=== PATIENT | female | born 1965 | race African-American/Black ===

== ENCOUNTER 2019-08-02 16:00 | Outpatient (CLI) | payer BC, SELFPAY ==
--- NOTE | ~2019-08-02 | MM_ITS ---
EXAMINATION: MM screening [facility] BI w [place] HISTORY: Screening mammogram TECHNIQUE: Craniocaudal and mediolateral oblique 3-D tomosynthesis images were obtained and synthetic 2-D images were generated. CAD analysis was submitted and interpreted. COMPARISON: Comparison to multiple prior studies sequentially, with oldest reviewed study dated . . BREAST PARENCHYMAL COMPOSITION: There are scattered areas of fibroglandular density. FINDINGS: Stable benign-appearing low-density mass with circumscribed margins upper outer quadrant of the right breast. There is no evidence of suspicious mass, calcification, or architectural distortio n to suggest malignancy in either breast. There has been no suspicious interval change. IMPRESSION: 1. No mammographic evidence of malignancy. 2. Recommend routine screening mammography in one year. BI-RADS Category 2: Benign finding(s). Reviewed, dictated and finalized at location A.
== END 2019-08-02 16:01 | disposition home or self-care (01) ==
LOC: ANHIMG 16:03
PROVIDERS: PCP Family Medicine; Visit Provider Advanced Practice Midwife
DX: Z12.31 Encounter for screening mammogram for malignant neoplasm of breast (principal)
CPT/HCPCS: 77063; 77067

== ENCOUNTER 2019-08-04 00:51 | Emergency (ER) | payer BC, SELFPAY ==
--- NOTE | ~2019-08-04 | XR_ITS ---
EXAMINATION: XR chest 2V EXAM DATE: 08/04/2019 01:39 INDICATION: Left sided chest pain for 2 days. TECHNIQUE: Frontal and lateral projections of the chest obtained and reviewed. Comparison is made to prior examination from 01/20/2019. FINDINGS: The lungs are clear. There are no pleural effusions. The cardiomediastinal silhouette is within normal limits. There is no pneumothorax suspected. The bones and soft tissues are unremarkab le. There is no significant interval change. IMPRESSION: Normal chest x-ray exam. Reviewed, dictated and finalized at location A. IMPRESSION: Normal chest x-ray exam.
[2019-08-04 00:55] VITALS: BP 128/82; PULSE 117; RESP 16; TEMP 36.4; O2SAT 99
[2019-08-04 01:04] VITALS: BP 141/90; PULSE 104; RESP 19; TEMP 36.9; O2SAT 99
--- NOTE | 2019-08-04 01:07 | ECG_ITS ---
Measurements Intervals [place] Rate: 105 P: 52 NH: 129 QRS: 7 QRSD: 86 T: 61 QT: 339 QTc: 448 Interpretive Statements SINUS TACHYCARDIA POSSIBLE LEFT ATRIAL ENLARGEMENT VOLTAGE CRITERIA FOR LVH ABNORMAL ECG Electronically Signed On 08-04-2019 8:41:20 CDT by Chucho Pina D.O.
[2019-08-04 01:19] VITALS: PULSE 98; O2SAT 100
[2019-08-04 01:20] LABS: Basophils Percent Auto 0.3 % (0.2-1.2); Eosinophils Absolute Auto 0.1 K/mm3 (0-0.3); Eosinophils Percent Auto 0.9 % (0-4.4); Hematocrit 31.1 % (37.0-47.0); Hemoglobin 10.1 g/dL (12.0-15.0); Immature Granulocyte Absolute 0.03 K/mm3 (0.00-0.031); Immature Granulocyte Percent A 0.3 % (0-0.5); Lymphocytes Absolute Auto 1.37 K/mm3 (0.9-3.2); Lymphocytes Percent Auto 13.9 % (18.3-44.2); Mean Corpuscular HGB Conc 32.5 g/dl (32-36); Mean Corpuscular Hemoglobin 30.9 pg (26-34); Mean Corpuscular Volume 95.1 fl (80-100); Mean Platelet Volume 9.8 fl (7.4-10.4); Monocytes Absolute Auto 1.1 K/mm3 (0.1-0.6); Monocytes Percent Auto 10.8 % (2.6-8.5); Neutrophils Absolute Auto 7.3 K/mm3 (1.3-6.7); Neutrophils Percent Auto 73.8 % (45.5-73.1); Platelet Count Result 296 k/mm3 (150-375); Red Blood Count 3.27 M/mm3 (4.2-5.4); Red Cell Distribution Width 14.5 % (11.5-14.5); White Blood Count 9.9 K/mm3 (4.5-10.0)
--- NOTE | 2019-08-04 01:22 | ED.CHESTPAIN ---
HPI - Chest Pain General Chief Complaint: Chest Pain Stated Complaint: left arm pain, shoulder pain Time Seen by Provider: 08/04/19 01:22 Source: patient Mode of arrival: ambulatory Limitations: no limitations History of Present Illness HPI narrative: A 54 y/o female presents to the ED with c/o neck pain and left arm pain that began 5 days ago and has been constant since onset. Pt also c/o intermittent diffuse CP and ABD pain that began 2 days ago. Pt states that the CP will last for a few minutes at a time and then resolve. There are no aggravating factors. Pt describes the pain as sharp in character. Pt has taken Tylenol with no relief. Pt notes that she is currently going through menopause. She denies numbness/tingling, back pain, a fever, chills, productive cough, leg edema, and a FHx of heart disease. Onset (ago): day(s) (5) Quality: sharp Treatment prior to arrival: other (Tylenol) Related Data Home Medications Medication Instructions Recorded Confirmed adalimumab [Humira Pen] See Rx Instructions .ROUTE .COMPLEX 04/05/19 gabapentin 400 mg PO HS 04/05/19 multivitamin 1 tablet PO DAILY 04/07/19 atorvastatin 08/04/19 Allergies Allergy/AdvReac Type Severity Reaction Status Date / Time No Known Allergies Allergy Verified 08/04/19 01:06 Review of Systems Review of Systems: All systems reviewed & are unremarkable except as noted in HPI and below Constitutional: Constitutional: Denies chills and Denies fever(s) Cardiovascular: Cardiovascular: Reports chest pain (diffuse) and Denies leg edema Respiratory: Respiratory: Denies cough (productive) Gastrointestinal: Gastrointestinal: Reports abdominal pain (diffuse) Musculoskeletal: Musculoskeletal: Denies back pain Comments: Reports: neck pain, left arm pain Neurologic: Denies numbness PMFSH Past Medical History Medical History (Updated 08/04/19 @ 03:42 by Brigido Villalobos MD) Abdominal pain Anemia BP (high blood pressure) Chronic constipation Chronic insomnia HLD (hyperlipidemia) Mixed hyperlipidemia Morbid obesity Rheumatoid arthritis Surgical History Surgical History (Updated 08/04/19 @ 01:35 by Yamila Ziegler) Bariatric surgery status H/O prior ablation treatment Hx of hysterectomy Previous section S/P rotator cuff repair Social History Social History Years smoked: 25 Smoking status: Light tobacco smoker Tobacco type: cigarettes Second hand tobacco smoke exposure: Yes Alcohol intake: current Drinks per week: 2 Substance use: never Substance use type: does not use Gender identity (if verbalized by the patient): Female Comments No PCP on file. Exam Narrative: Exam Narrative: GENERAL: Well-appearing, well-nourished, and in no acute distress. HEAD: Normocephalic, atraumatic. ENT: Mucous membranes moist. NECK: Supple. No paraspinal cervical tenderness or trapezius tenderness. CHEST: Clear to auscultation. No respiratory distress. HEART: Regular rate and rhythm. Normal peripheral pulses that are equal. ABDOMEN: Soft, nontender, nondistended. EXTREMITIES: Normal range of motion with normal strength in the upper extremities. No reproducible tenderness over the deltoid/biceps/triceps/forearm.. No edema. SKIN: Warm, dry, no rash. NEURO: Alert and oriented x3. Course Course Emergency Course: Troponin undetectable despite persistent neck and arm pain for 5 days and chest pain for 2 days. Normal-appearing EKG with indeterminate axis. Patient declined additional pain medication beyond acetaminophen which was provided. Needs follow-up with PCP. Vital Signs Vital signs: Vital Signs Temperature 97.6 F 08/04/19 00:55 Pulse Rate 117 H 08/04/19 00:55 Respiratory Rate 16 08/04/19 00:55 Blood Pressure 128/82 08/04/19 00:55 Pulse Oximetry 99 08/04/19 00:55 Temperature 98.5 F 08/04/19 01:04 Pulse Rate 85 08/04/19 03:18 Respiratory R
[2019-08-04 01:28] LABS: Prothrombin Time 12.7 Seconds (11.1-14.7)
[2019-08-04 01:29] LABS: Partial Thromboplastin Time 41.8 SECONDS (22.3-36.8)
[2019-08-04] MEDS: ASPIRIN 81 MG CHEWABLE TABLET 324 MG PO (01:30)
[2019-08-04 01:32] LABS: Blood Urea Nitrogen 24 mg/dL (7-17); Calcium 9.4 mg/dL (8.4-10.2); Carbon Dioxide 26 mmol/L (22-30); Chloride 96 mmol/L (98-107); Estimated CRCL calculation 40 ml/min; Estimated Glomerular Filt Rate 52; Glucose 124 mg/dL (65-105); Lipase 176 U/L (23-300); Potassium 3.2 mmol/L (3.4-5.0); Sodium 133 mmol/L (137-145)
[2019-08-04 01:43] LABS: Troponin I < 0.012 ng/mL (0.000-0.034)
[2019-08-04 02:10] VITALS: BP 144/80; PULSE 85; RESP 16; O2SAT 100
[2019-08-04 02:27] LABS: Add Urine Microscopic? YES; Appearance Urine Clear (Clear); Bilirubin Urine Negative (Negative); Blood Urine Negative (Negative); Color Urine Yellow (Yellow); Glucose Urine UA Negative (Negative); Ketones Urine Trace mg/dL (Negative); Leukocyte Esterase Ur Negative LEU/UL (Negative); Nitrate Urine Negative (Negative); Protein Urine Negative (Negative); RBC Urine 0-2 /hpf (0-2); Urobilinogen Urine Negative mg/dL (<2.0); WBC Urine 0-3 /hpf
--- NOTE | 2019-08-04 03:16 | PC.NURSE ---
pt co arm pain. pt requesting pain medications. edp notified no further orders at this time.
[2019-08-04 03:18] VITALS: BP 139/87; PULSE 85; RESP 15; O2SAT 100
[2019-08-04] MEDS: ACETAMINOPHEN 325 MG TABLET 650 MG PO (03:41)
[2019-08-04 03:45] VITALS: BP 129/80; PULSE 66; RESP 14; O2SAT 97
== END 2019-08-04 03:45 | disposition home or self-care (01) ==
PROVIDERS: Emergency Provider Emergency Medicine; PCP Family Medicine
DX: M79.602 Pain in left arm (principal); I10 Essential (primary) hypertension; E78.5 Hyperlipidemia, unspecified; E78.2 Mixed hyperlipidemia; E66.01 Morbid (severe) obesity due to excess calories; Z68.25 Body mass index [BMI] 25.0-25.9, adult; M06.9 Rheumatoid arthritis, unspecified; F17.210 Nicotine dependence, cigarettes, uncomplicated; R00.0 Tachycardia, unspecified; R94.31 Abnormal electrocardiogram [ECG] [EKG]
CPT/HCPCS: 36415; 71046; 80048; 81001; 81025; 83690; 84484; 85025; 85610; 85730; 93005; 99284; A9270

== ENCOUNTER 2019-10-18 16:55 | Outpatient (CLI) | payer BC, SELFPAY ==
--- NOTE | ~2019-10-18 | CT_ITS ---
EXAMINATION: CT cervical spine wo con DATE: 10/18/2019 17:16 INDICATION: Cervical nerve root compression. TECHNIQUE: Computed tomography (CT) of the cervical spine was performed without intravenous contrast. Automated exposure control and iterative reconstruction technique were employed. The dose-length pro duct was 164.06 mGy-cm. COMPARISON: None FINDINGS: There is 6 degrees dextrocurvature of cervicothoracic spine. There is kyphosis of cervical spine. Vertebral body heights are normal. There is moderately decreased disc height at C2-C3 and C3-C 4, mildly decreased disc height at C4-C5 and C5-C6, severely decreased disc height at C6-C7, and mild ly decreased disc height at C7-T1. There are large anterior osteophytes from C3 to C7 with solid bony bridging at C4-C5. The following disc levels are specifically discussed: C2-C3: There is mild left uncovertebral joint osteoarthritis. There is severe bilateral facet joint o steoarthritis. There is mild left neural foraminal stenosis. There is no central canal stenosis. C3-C4: There is severe right and moderate left uncovertebral joint osteoarthritis. There is severe bi lateral facet joint osteoarthritis. There is mild bilateral neural foraminal stenosis. There is mild central canal stenosis. C4-C5: There is mild bilateral uncovertebral joint osteoarthritis. There is mild right and moderate l eft facet joint osteoarthritis. There is mild left neural foraminal stenosis. There is mild central c anal stenosis. C5-C6: There is no uncovertebral joint osteoarthritis. There is no facet joint osteoarthritis. There is no neural foraminal stenosis. There is no central canal stenosis. C6-C7: There is severe left uncovertebral joint osteoarthritis. There is severe bilateral facet joint osteoarthritis. There is mild left neural foraminal stenosis. There is mild central canal stenosis. C7-T1: There is no uncovertebral joint osteoarthritis. There is mild right and moderate left facet audie int osteoarthritis. There is mild left neural foraminal stenosis. There is no central canal stenosis. IMPRESSION: 1. Severe cervical spondylosis. Reviewed, dictated and finalized at location A.
== END 2019-10-18 16:56 | disposition home or self-care (01) ==
PROVIDERS: PCP Family Medicine; Visit Provider Family Medicine
DX: M47.892 Other spondylosis, cervical region (principal)
CPT/HCPCS: 72125

== ENCOUNTER 2019-12-07 16:36 | Outpatient (CLI) | payer BC, SELFPAY ==
--- NOTE | ~2019-12-07 | CT_ITS ---
EXAMINATION: CT abdomen pelvis w con INDICATION: Abnormal weight loss TECHNIQUE: Computed tomographic images of the abdomen and pelvis were obtained after the administrati on of 100 cc of Omnipaque 350 intravenous contrast. The dose-length product (DLP) was 273.23 mGy-cm. Automated exposure control and iterative reconstruction technique were employed. COMPARISON: None available FINDINGS: The lung bases are clear. The heart size is normal. The liver, spleen, pancreas, and adrena l glands are normal. Stones are present in the nondistended gallbladder. Surgical changes in the stom ach likely reflect gastric bypass. Cysts of the kidneys measure up to 3.3 cm on the right. There is c alcified atherosclerosis of the aorta and many of the other arteries. No pathologically enlarged abdo carey or pelvic lymph nodes are identified. There is no free intraperitoneal gas or evidence of bowel obstruction. The appendix is normal. Severe spondylosis is noted at L4-5. IMPRESSION: 1. No CT correlate for the patient's symptoms. 2. Cholelithiasis without evidence of cholecystitis. Reviewed, dictated and finalized at location A.
== END 2019-12-07 16:37 | disposition home or self-care (01) ==
PROVIDERS: PCP Family Medicine; Visit Provider Family Medicine
DX: K80.20 Calculus of gallbladder without cholecystitis without obstruction (principal)
CPT/HCPCS: 74177; Q9967

== ENCOUNTER 2020-02-21 08:05 | Emergency (ER) | payer BC, SELFPAY ==
--- NOTE | ~2020-02-21 | XR_ITS ---
EXAMINATION: XR shoulder LT min 2V DATE: 02/21/2020 09:12 INDICATION: Atraumatic right shoulder pain TECHNIQUE: AP internally and externally rotated, AP oblique externally rotated and axillary views of the left shoulder were obtained. COMPARISON: None FINDINGS: Normal alignment. No fracture.Mild glenohumeral and acromioclavicular osteoarthritis. No erosions to suggest inflammatory arthritis. Visualized portions of the upper lungs are clear. Soft tissues are u nremarkable. IMPRESSION: Mild glenohumeral and acromioclavicular osteoarthritis. Reviewed, dictated and finalized at location A.
--- NOTE | ~2020-02-21 | XR_ITS ---
EXAMINATION: XR chest 2V DATE: 02/21/2020 09:12 INDICATION: General left shoulder pain TECHNIQUE: PA and lateral views of the chest were obtained. COMPARISON: Chest radiograph dated 08/04/2019 FINDINGS: The lungs remain clear with no focal airspace opacities, pulmonary edema, pleural effusion or pneumot horax. The cardiomediastinal silhouette is normal. Mild thoracic dextrocurvature with mild to moderat e spondylosis. Postoperative changes at the right shoulder including likely osteotomy at the distal c lavicle and metallic buttons clinically for bicipital tenodesis at the proximal right humeral metadia physis. Several surgical clips in the left upper quadrant of the abdomen. IMPRESSION: 1. No acute cardiopulmonary disease. Reviewed, dictated and finalized at location A.
--- NOTE | 2020-02-21 08:06 | ECG_ITS ---
Measurements Intervals [place] Rate: 106 P: 59 SC: 122 QRS: 13 QRSD: 83 T: 46 QT: 346 QTc: 461 Interpretive Statements SINUS TACHYCARDIA POSSIBLE LEFT ATRIAL ENLARGEMENT VOLTAGE CRITERIA FOR LVH NONSPECIFIC T-WAVE ABNORMALITY- HIGH LATERAL LEADS BASELINE ARTIFACT- I, III, AVL, AVF, V4-V6 ABNORMAL ECG Electronically Signed On 02-21-2020 8:20:13 CDT by Chucho Pina D.O.
[2020-02-21 08:08] VITALS: BP 157/73; PULSE 108; RESP 20; TEMP 37; O2SAT 98
--- NOTE | 2020-02-21 08:10 | ED.NECK ---
HPI - Neck Pain/Injury General Chief Complaint: Neck Pain/Injury Stated Complaint: shoulder and neck pain Time Seen by Provider: 02/21/20 08:10 Source: patient Mode of arrival: ambulatory Limitations: no limitations History of Present Illness HPI Narrative: Patient is a 54 y.o. female with RA, chronic pain, history of severe cervical spondylosis who presents for evaluation of shoulder pain. Patient states shoulder pain began 72 hours ago on Thursday, no recent trauma or heavy lifting. Pain is dull, aching in nature, at times it is wosened with movement. Patient denies any chest pain, cough or shortness of breath. No fever or chills. No swelling of the arm, no history of trouble with this arm. Patient denies any numbness or weakness in her left upper extremity. No rash. Patient reports chronic back pain and chronic neck pain. She follows with Dr. Santoyo for this. In the past, patient has been referred to pain management. Of note, patient has a very flat affect, very difficult to obtain history from the patient, patient is not very forthcoming with information. Related Data Home Medications Medication Instructions Recorded Confirmed adalimumab [Humira Pen] See Rx Instructions .ROUTE .COMPLEX 04/05/19 12/27/19 gabapentin 400 mg PO HS 04/05/19 12/27/19 multivitamin 1 tablet PO DAILY 04/07/19 12/27/19 atorvastatin 08/04/19 12/27/19 Allergies Allergy/AdvReac Type Severity Reaction Status Date / Time hydromorphone Allergy Intermediate pruritis Verified 02/21/20 08:18 Review of Systems Review of Systems: Narrative: CONSTITUTIONAL: Denies fever, chills ENT: Denies rhinorrhea, congestion, sore throat, or otalgia. CARDIOVASCULAR: Denies chest pain, palpitations, or edema. RESPIRATORY: Denies cough or dyspnea. GASTROINTESTINAL: Denies abdominal pain, nausea, vomiting, or diarrhea. GENITOURINARY: Denies dysuria or hematuria. SKIN: Denies rash or itching. MUSCULOSKELETAL: Reports chronic back pain, reports left shoulder pain NEUROLOGIC: Denies headache, numbness, or weakness. [facility] Past Medical History Medical History Abdominal pain Anemia Benign essential HTN BP (high blood pressure) Chronic constipation Chronic insomnia HLD (hyperlipidemia) Mixed hyperlipidemia Morbid obesity Rheumatoid arthritis Tobacco dependence due to cigarettes Surgical History Surgical History Bariatric surgery status H/O prior ablation treatment Hx of hysterectomy Previous section S/P rotator cuff repair Social History Social History Social History: Single Years smoked: 25 Smoking status: Light tobacco smoker Tobacco type: cigarettes Second hand tobacco smoke exposure: Yes Alcohol intake: current Drinks per week: 2 Substance use: never Substance use type: does not use Gender identity (if verbalized by the patient): Female Exam Narrative: Exam Narrative: GENERAL: Awake, alert, conversant HEAD: Normocephalic, atraumatic. EYES: PERRLA and EOMI. ENT: Nares clear, no rhinorrhea or epistaxis. Mucous membranes moist. NECK: Supple. CHEST: No respiratory distress, breathing even and non labored HEART: Regular rate, sinus rhythm ABDOMEN:Non distended, non tender EXTREMITIES: Left shoulder: Normal range of motion. No edema. Mild tenderness over the trapezius, no tenderness over the deltoid. No tenderness over the clavicle. No scapular tenderness. Full abduction and adduction without limitation or pain. No axillary lymphadenopathy. Full flexion and extension at the left elbow. No edema or erythema. Intact sensation median, ulnar, radial nerve distribution. Tarper strength 5/5. Radial pulse 2+. SKIN: Warm, dry, no rash. NEURO:No focal deficits. Alert and oriented x3 Course Vital Signs Vital signs: Vital Signs Temperature 37.0 C 02/20
[2020-02-21 09:04] LABS: Basophils Percent Auto 0.3 % (0.2-1.2); Eosinophils Absolute Auto 0.1 K/mm3 (0-0.3); Hemoglobin 9.3 g/dL (12.0-15.0); Immature Granulocyte Absolute 0.03 K/mm3 (0.00-0.031); Immature Granulocyte Percent A 0.3 % (0-0.5); Lymphocytes Absolute Auto 1.15 K/mm3 (0.9-3.2); Lymphocytes Percent Auto 12.7 % (18.3-44.2); Mean Corpuscular Hemoglobin 27.3 pg (26-34); Mean Platelet Volume 10.1 fl (7.4-10.4); Monocytes Absolute Auto 0.8 K/mm3 (0.1-0.6); Monocytes Percent Auto 8.6 % (2.6-8.5); Neutrophils Percent Auto 77.1 % (45.5-73.1); Platelet Count Result 377 k/mm3 (150-375); Red Blood Count 3.41 M/mm3 (4.2-5.4); Red Cell Distribution Width 19.8 % (11.5-14.5); White Blood Count 9.1 K/mm3 (4.5-10.0)
[2020-02-21] MEDS: ONDANSETRON INJ 4 MG/2 ML VIAL IV PUSH (09:15)
[2020-02-21] MEDS: traMADol HCL (*CRX) 50 MG TABLET 25 MG PO (09:15)
[2020-02-21 09:16] LABS: Alanine Aminotransferase 12 U/L (4-35); Albumin Level 4.3 g/dL (3.5-5.1); Alkaline Phosphatase 155 U/L (38-126); Anion Gap 13 mmol/L (8-16); Aspartate Amino Transferase 25 U/L (14-36); Bilirubin,Total 0.5 mg/dL (0.2-1.3); Blood Urea Nitrogen 18 mg/dL (7-17); Calcium 9.7 mg/dL (8.4-10.2); Carbon Dioxide 25 mmol/L (22-30); Chloride 101 mmol/L (98-107); Estimated CRCL calculation 51 ml/min; Estimated Glomerular Filt Rate > 60; Glucose 139 mg/dL (65-105); Lipase 196 U/L (23-300); Sodium 139 mmol/L (137-145)
[2020-02-21 09:30] VITALS: BP 146/78; PULSE 92; RESP 16; O2SAT 98
[2020-02-21 10:45] VITALS: BP 149/87; PULSE 100; RESP 16; O2SAT 100
== END 2020-02-21 10:45 | disposition home or self-care (01) ==
PROVIDERS: Emergency Provider Emergency Medicine; PCP Family Medicine
DX: S16.1XXA Strain of muscle, fascia and tendon at neck level, initial encounter (principal); M25.512 Pain in left shoulder; M19.90 Unspecified osteoarthritis, unspecified site; R00.0 Tachycardia, unspecified; F17.210 Nicotine dependence, cigarettes, uncomplicated; I10 Essential (primary) hypertension; E78.5 Hyperlipidemia, unspecified; Z98.84 Bariatric surgery status; X58.XXXA Exposure to other specified factors, initial encounter
CPT/HCPCS: 36415; 71046; 73030; 80053; 83690; 85025; 93005; 96374; 99284; A9270; J2405

== ENCOUNTER 2020-03-27 01:08 | Outpatient (CLI) | payer BC, SELFPAY ==
[2020-03-27 19:47] LABS: SARS-CoV-2 RNA PCR Negative
== END 2020-03-27 01:09 | disposition home or self-care (01) ==
LOC: ANHCOVIDDT 01:08
PROVIDERS: PCP Family Medicine; Visit Provider Internal Medicine Gastroenterology
DX: Z01.818 Encounter for other preprocedural examination (principal); Z20.828 Contact with and (suspected) exposure to other viral communicable diseases
CPT/HCPCS: 87635; C9803; U0003

== ENCOUNTER 2020-03-30 00:37 | Day surgery (SDC) | payer BC, SELFPAY ==
[2020-03-27 08:57] VITALS: BMI 21.2
--- NOTE | 2020-03-30 08:08 | WPDANESEPPF ---
Anes - Initial Pre Proc Eval Procedure: Operation Date: 03/30/20 09:00 Proposed Procedures p Esophagogastroduodenoscopy - Ash Armas MD Date/Time: 03/30/20 08:08 Surgeon: Ash Armas MD Pre Op Diagnosis: Anemia Patient Data Age: 54 Gender: F Height: 1.65 m Weight: 58 kg Allergies Allergy/AdvReac Type Severity Reaction Status Date / Time hydrocodone [From Vicodin] Allergy Intermediate Itching Verified 03/27/20 08:51 hydromorphone Allergy Intermediate pruritis Verified 03/27/20 08:50 tramadol Allergy Intermediate Itching Verified 03/27/20 08:51 Home Medications Medication Instructions Recorded Confirmed Type adalimumab [Humira Pen] See Rx Instructions .ROUTE .COMPLEX 04/05/19 03/27/20 History multivitamin 1 tablet PO DAILY 04/07/19 03/27/20 History atorvastatin 10 mg PO DAILY 08/04/19 03/27/20 History temazepam 15 mg capsule 15 mg PO .qhs PRN #60 cap 12/27/19 03/27/20 Rx gabapentin 400 mg capsule 800 mg PO TID cap 02/22/20 03/27/20 History carisoprodol 350 mg tablet 350 mg PO TID PRN #90 tablet 02/28/20 03/27/20 Rx irbesartan 150 mg tablet 150 mg PO DAILY #30 tablet 03/20/20 03/27/20 Rx leflunomide 20 mg PO DAILY 03/27/20 03/27/20 History omeprazole 20 mg capsule,delayed 20 mg PO DAILY #90 cap 03/29/20 Rx release Patient hx anesthesia problems: none Family hx anesthesia problems: none PMFSH Past Medical History Medical History (Updated 03/30/20 @ 08:09 by Juanito Jordan MD) Abdominal pain Anemia Benign essential HTN BP (high blood pressure) Chronic constipation Chronic insomnia HLD (hyperlipidemia) Mixed hyperlipidemia Rheumatoid arthritis Tobacco dependence due to cigarettes Surgical History Surgical History Bariatric surgery status H/O prior ablation treatment Hx of hysterectomy Previous section S/P rotator cuff repair Social History Social History Social History: Single Years smoked: 20 Smoking status: Current every day smoker Tobacco type: cigarettes Second hand tobacco smoke exposure: Yes Alcohol intake: current Drinks per week: 2 Substance use: never Substance use type: does not use Living arrangements: with family Gender identity (if verbalized by the patient): Female Spiritual care concerns: No Anes - Eval Final PreProcedure Day of Procedure 03/30/20 08:08 Patient weight: normal Heart: regular rate and rhythm Lungs: clear to auscultation and normal air movement Airway: Mallampati scale class II Neurological: alert and oriented Last oral intake: >/= 8 hours ASA classification: III Emergent: no Anesthetic plan: proceed Anesthesia type and monitoring: general GIVS Informed Consent: The patient's anesthetic plan and its attendant risks and benefits were discussed with the patient/family/POA. Questions were solicited and answers provided to the satisfaction of the patient/family/POA.
[2020-03-30] MEDS: LACTATED RINGERS 1,000 ML 150 ML IV CONT (08:32)
--- NOTE | 2020-03-30 08:34 | WPDHPUPDATE1 ---
History and Physical Update Update Date/Time: 03/30/20 08:34 History and Physical has been reviewed, including an updated exam of the patient. There are NO changes in the patient's condition. Risks, benefits, and alternatives have been discussed and questions answered. Patient agrees to proceed with procedure.
[2020-03-30 08:36] VITALS: BP 129/49; PULSE 88; RESP 16; TEMP 36.3; O2SAT 100; BMI 22.4
[2020-03-30 08:59] VITALS: BP 133/79; PULSE 84; RESP 24; O2SAT 94
[2020-03-30 09:09] VITALS: BP 131/81; PULSE 78; RESP 22; O2SAT 100
[2020-03-30 09:19] VITALS: BP 137/75; PULSE 86; RESP 18; O2SAT 100
== END 2020-03-30 09:29 | disposition home or self-care (01) ==
PROVIDERS: PCP Family Medicine; Visit Provider Internal Medicine Gastroenterology
PROC: 0DJ08ZZ Inspection of Upper Intestinal Tract, Via Natural or Artificial Opening Endoscopic (ICD-10-PCS; CPT 43235; principal; 2020-03-30 09:00)
DX: D50.9 Iron deficiency anemia, unspecified (principal); K25.9 Gastric ulcer, unspecified as acute or chronic, without hemorrhage or perforation; K29.70 Gastritis, unspecified, without bleeding; Z98.84 Bariatric surgery status; I10 Essential (primary) hypertension; E78.2 Mixed hyperlipidemia; M06.9 Rheumatoid arthritis, unspecified; K59.09 Other constipation; F51.04 Psychophysiologic insomnia; F17.210 Nicotine dependence, cigarettes, uncomplicated
CPT/HCPCS: 43239; 87081; 88305; J2704; J7120

== ENCOUNTER → 2020-10-06 01:35 | Outpatient (CLI) | payer BC, SELFPAY ==
[2020-10-06 19:55] LABS: SARS-CoV-2 RNA PCR Negative
== END ==
PROVIDERS: PCP Family Medicine; Visit Provider Internal Medicine Gastroenterology
DX: Z01.812 Encounter for preprocedural laboratory examination (principal); Z20.822 Contact with and (suspected) exposure to COVID-19
CPT/HCPCS: C9803; U0003; U0005

== ENCOUNTER 2020-10-10 02:28 | Day surgery (SDC) | payer BC, SELFPAY ==
[2020-10-03 09:59] VITALS: BMI 22.7
[2020-10-10 07:11] VITALS: BP 150/89; PULSE 97; RESP 16; TEMP 36.3; O2SAT 100; BMI 22.4
[2020-10-10] MEDS: LACTATED RINGERS 1,000 ML 150 ML IV CONT (07:26)
--- NOTE | 2020-10-10 07:38 | WPDANESEPPF ---
Anes - Initial Pre Proc Eval Procedure: Operation Date: 10/10/20 08:00 Proposed Procedures p Esophagogastroduodenoscopy - Ash Armas MD Date/Time: 10/10/20 07:38 Surgeon: Ash Armas MD Pre Op Diagnosis: gastric ulcer Patient Data Age: 55 Gender: F Height: 5 ft 5 in Weight: 61 kg Last Vital Signs Temp 97.4 F L 10/10/20 07:11 Pulse 97 10/10/20 07:11 Resp 16 10/10/20 07:11 BP 150/89 H 10/10/20 07:11 Pulse Ox 100 10/10/20 07:11 Allergies Allergy/AdvReac Type Severity Reaction Status Date / Time hydrocodone [From Vicodin] Allergy Intermediate Itching Verified 10/10/20 07:09 hydromorphone Allergy Intermediate pruritis Verified 10/10/20 07:09 tramadol Allergy Intermediate Itching Verified 10/10/20 07:09 Home Medications Medication Instructions Recorded Confirmed Type multivitamin 1 tablet PO DAILY 04/07/19 10/10/20 History leflunomide 20 mg PO DAILY 03/27/20 10/10/20 History irbesartan 150 mg tablet 150 mg PO DAILY #90 tablet 06/19/20 10/10/20 Rx atorvastatin 10 mg tablet 10 mg PO DAILY #90 tablet 06/29/20 10/10/20 Rx amitriptyline 25 mg tablet 25 mg PO QHS #30 tablet 09/13/20 10/10/20 Rx abatacept [Orencia ClickJect] 125 mg SUBCUT WEEKLY 10/03/20 10/10/20 History omeprazole 20 mg capsule,delayed 20 mg PO BID #180 cap 10/03/20 10/10/20 Rx release Patient hx anesthesia problems: none Family hx anesthesia problems: none PMFSH Past Medical History Medical History Abdominal pain Anemia Benign essential HTN BP (high blood pressure) Chronic constipation Chronic insomnia HLD (hyperlipidemia) Mixed hyperlipidemia Rheumatoid arthritis Tobacco dependence due to cigarettes Surgical History Surgical History Bariatric surgery status H/O prior ablation treatment Hx of hysterectomy Previous section S/P rotator cuff repair Social History Social History (Updated 05/22/20 @ 07:38 by Radha Hargrove) Social History: Single Years smoked: 26 Smoking status: Current every day smoker Tobacco type: cigarettes Second hand tobacco smoke exposure: Yes Alcohol intake: current Drinks per week: 1 Substance use: never Substance use type: does not use Living arrangements: alone Gender identity (if verbalized by the patient): Female Spiritual care concerns: No Anes - Eval Final PreProcedure Day of Procedure 10/10/20 07:38 Patient weight: overweight Heart: regular rate and rhythm Lungs: clear to auscultation Airway: Mallampati scale class II Neurological: alert and oriented Last oral intake: >/= 8 hours ASA classification: III Emergent: no Anesthetic plan: proceed Anesthesia type and monitoring: general GIVS and standard monitoring Informed Consent: The patient's anesthetic plan and its attendant risks and benefits were discussed with the patient/family/POA. Questions were solicited and answers provided to the satisfaction of the patient/family/POA.
--- NOTE | 2020-10-10 08:00 | PM.HPGS ---
History of Present Illness History of Present Illness Consent: Risks, benefits, and alternatives have been discussed and questions answered. Patient agrees to proceed with procedure. Chief complaint: gastric ulcer Narrative: Soheila Gasca is a 55 year old female with ulcer at site of gastrojejunal anastomosis 6 months ago, using ppi bid. Here to reassess Review of Systems Constitutional: Constitutional: Denies headache(s) and Denies weakness Eyes: Eyes: Denies blurry vision ENT: Reports Normal hearing present, Denies headache(s) and Denies neck pain Cardiovascular: Cardiovascular: Denies chest pain and Denies dyspnea Respiratory: Respiratory: Denies dyspnea Gastrointestinal: Gastrointestinal: Reports no additional gastrointestinal complaints Genitourinary: Genitourinary: Denies dysuria Musculoskeletal: Musculoskeletal: Denies neck pain Integumentary/Breasts: Skin/Breast: Denies dry skin Neurologic: Reports Normal hearing present, Denies headache(s) and Denies weakness Psychiatric: Psychiatric: Denies anxiety Endocrine: Endocrine: Denies change in body appearance Hematologic/Lymphatic: Hematologic/Lymphatic: Denies easy bleeding Allergic/Immunologic: Allergic/Immunologic: Denies urticaria PMFSH Past Medical History Medical History (Updated 10/10/20 @ 08:01 by Ash Armas MD) Abdominal pain Anemia Benign essential HTN BP (high blood pressure) Chronic constipation Chronic insomnia HLD (hyperlipidemia) Mixed hyperlipidemia Rheumatoid arthritis Tobacco dependence due to cigarettes Ulcer at site of surgical anastomosis following bypass of stomach Surgical History Surgical History Bariatric surgery status H/O prior ablation treatment Hx of hysterectomy Previous section S/P rotator cuff repair Social History Social History (Updated 05/22/20 @ 07:38 by Radha Hargrove) Social History: Single Years smoked: 26 Smoking status: Current every day smoker Tobacco type: cigarettes Second hand tobacco smoke exposure: Yes Alcohol intake: current Drinks per week: 1 Substance use: never Substance use type: does not use Living arrangements: alone Gender identity (if verbalized by the patient): Female Spiritual care concerns: No Meds Home Medications and Allergies Home Medications Medication Instructions Recorded Confirmed Type multivitamin 1 tablet PO DAILY 04/07/19 10/10/20 History leflunomide 20 mg PO DAILY 03/27/20 10/10/20 History irbesartan 150 mg tablet 150 mg PO DAILY #90 tablet 06/19/20 10/10/20 Rx atorvastatin 10 mg tablet 10 mg PO DAILY #90 tablet 06/29/20 10/10/20 Rx amitriptyline 25 mg tablet 25 mg PO QHS #30 tablet 09/13/20 10/10/20 Rx abatacept [Orencia ClickJect] 125 mg SUBCUT WEEKLY 10/03/20 10/10/20 History omeprazole 20 mg capsule,delayed 20 mg PO BID #180 cap 10/03/20 10/10/20 Rx release Allergies Allergy/AdvReac Type Severity Reaction Status Date / Time hydrocodone [From Vicodin] Allergy Intermediate Itching Verified 10/10/20 07:09 hydromorphone Allergy Intermediate pruritis Verified 10/10/20 07:09 tramadol Allergy Intermediate Itching Verified 10/10/20 07:09 Vital Signs Vital Signs - 24 hr 10/10/20 07:11 Temperature 97.4 F L Pulse Rate 97 Respiratory Rate 16 Blood Pressure 150/89 H Pulse Oximetry 100 Exam Const: General: comfortable and no acute distress HENMT: General nose exam: Normal nares present Eyes: General: appearance normal, both eyes and all related structures Neck: Neck: no JVD Resp: Auscultation: clear to auscultation bilaterally Cardio: Rate: regular rate Rhythm: regular rhythm GI: Inspection: non-distended GI Palp: Yes Soft to palpation Skin: General skin exam: normal color Neuro: General: gait normal Speech: normal speech Extrem: General: normal to inspection Psych: Mental Status: mental status grossly normal
[2020-10-10 08:20] VITALS: BP 151/80; PULSE 95; RESP 21; O2SAT 95
[2020-10-10 08:30] VITALS: BP 151/80; PULSE 88; RESP 16; O2SAT 99
[2020-10-10 08:37] VITALS: BP 141/72; PULSE 89; RESP 16; O2SAT 99
== END 2020-10-10 08:51 | disposition home or self-care (01) ==
PROVIDERS: PCP Family Medicine; Visit Provider Internal Medicine Gastroenterology
PROC: 0DJ08ZZ Inspection of Upper Intestinal Tract, Via Natural or Artificial Opening Endoscopic (ICD-10-PCS; CPT 43235; principal; 2020-10-10 08:00)
DX: K28.9 Gastrojejunal ulcer, unspecified as acute or chronic, without hemorrhage or perforation (principal); K59.09 Other constipation; G47.00 Insomnia, unspecified; I10 Essential (primary) hypertension; E78.5 Hyperlipidemia, unspecified; M06.9 Rheumatoid arthritis, unspecified; Z98.84 Bariatric surgery status; K29.00 Acute gastritis without bleeding; K29.50 Unspecified chronic gastritis without bleeding; Z90.710 Acquired absence of both cervix and uterus; Z72.0 Tobacco use
CPT/HCPCS: 43239; 88305; J2001; J2704; J7120

== ENCOUNTER 2020-11-14 16:13 | Outpatient (CLI) | payer BC, SELFPAY ==
--- NOTE | ~2020-11-14 | MM_ITS ---
EXAMINATION: MM screening [facility] w [facility] HISTORY: Screening TECHNIQUE: Craniocaudal and mediolateral oblique 3-D tomosynthesis images were obtained and synthetic 2-D images were generated. CAD analysis was submitted and interpreted. COMPARISON: Comparison to multiple prior studies sequentially, with oldest reviewed study dated 11/2014. BREAST PARENCHYMAL COMPOSITION: There are scattered areas of fibroglandular density. FINDINGS: Stable benign-appearing mass in the upper outer quadrant of the right breast. There is no e vidence of suspicious mass, calcification, or architectural distortion to suggest malignancy in eithe r breast. There has been no suspicious interval change. IMPRESSION: 1. No mammographic evidence of malignancy. 2. Recommend routine screening mammography in one year. BI-RADS Category 2: Benign finding(s). Reviewed, dictated and finalized at location A.
== END 2020-11-14 16:14 | disposition home or self-care (01) ==
LOC: ANHIMG 16:14
PROVIDERS: PCP Family Medicine; Visit Provider Nurse Practitioner Obstetrics & Gynecology
DX: Z12.31 Encounter for screening mammogram for malignant neoplasm of breast (principal)
CPT/HCPCS: 77063; 77067

== ENCOUNTER 2020-12-18 18:27 | Emergency (ER) | payer BC, SELFPAY ==
--- NOTE | ~2020-12-18 | CT_ITS ---
EXAMINATION: CT brain wo con DATE: 12/18/2020 19:21 INDICATION: Dysphasia. Falls. Dropping things. TECHNIQUE: Computed tomography (CT) of the head was performed without intravenous contrast. The mA wa s adjusted according to patient size. Iterative reconstruction technique was employed. The dose-lengt h product was 605.33 mGy-cm. COMPARISON: None FINDINGS: There is no intracranial hemorrhage, acute infarction, or abnormal intracranial mass lesion . The ventricles are normal in size. The orbits are normal. The paranasal sinuses are clear. The mast oid air cells are normal. IMPRESSION: 1. Normal brain. Reviewed, dictated and finalized at location A. IMPRESSION: 1. Normal brain.
[2020-12-18 18:46] VITALS: BP 131/74; PULSE 99; RESP 18; TEMP 37; O2SAT 100
[2020-12-18 19:57] LABS: Basophils Percent Auto 0.4 % (0.2-1.2); Eosinophils Absolute Auto 0.1 K/mm3 (0-0.3); Eosinophils Percent Auto 1.3 % (0-4.4); Hematocrit 29.1 % (37.0-47.0); Hemoglobin 9.4 g/dL (12.0-15.0); Immature Granulocyte Absolute 0.03 K/mm3 (0.00-0.031); Immature Granulocyte Percent A 0.4 % (0-0.5); Lymphocytes Absolute Auto 1.55 K/mm3 (0.9-3.2); Lymphocytes Percent Auto 21.6 % (18.3-44.2); Mean Corpuscular HGB Conc 32.3 g/dl (32-36); Mean Corpuscular Hemoglobin 30.6 pg (26-34); Mean Corpuscular Volume 94.8 fl (80-100); Mean Platelet Volume 9.5 fl (7.4-10.4); Monocytes Absolute Auto 0.5 K/mm3 (0.1-0.6); Monocytes Percent Auto 6.8 % (2.6-8.5); Neutrophils Percent Auto 69.5 % (45.5-73.1); Platelet Count Result 174 k/mm3 (150-375); Red Blood Count 3.07 M/mm3 (4.2-5.4); Red Cell Distribution Width 16.6 % (11.5-14.5); White Blood Count 7.2 K/mm3 (4.5-10.0)
[2020-12-18 20:09] LABS: Anion Gap 7 mmol/L (8-16); Blood Urea Nitrogen 18 mg/dL (7-17); Calcium 9.1 mg/dL (8.4-10.2); Carbon Dioxide 23 mmol/L (22-30); Chloride 106 mmol/L (98-107); Estimated CRCL calculation 51 ml/min; Estimated Glomerular Filt Rate > 60; Glucose 123 mg/dL (65-110); Potassium 3.2 mmol/L (3.4-5.0); Sodium 136 mmol/L (137-145)
--- NOTE | 2020-12-18 21:00 | ED.NEUROSD ---
HPI - Neuro Symptoms/Deficit General Chief Complaint: Neuro Symptoms/Deficit Stated Complaint: Falling and dropping things for 2 weeks Time Seen by Provider: 12/18/20 19:26 Source: patient Mode of arrival: ambulatory Limitations: no limitations History of Present Illness HPI Narrative: 55-year-old female Patient had cervical spine fusion done at [place] in May of this year She has continued to have pain, although not quite as much, postoperatively For about the last 2 or 3 weeks she has noticed that she has stumbled and fallen a couple of times, and that also she has had a few episodes of dropping things unexpectedly with either hand She spoke to her PCP about this at some point and they recommended that she be evaluated in the ED for this, primarily due to concern for possible CVA or TIA according to the patient She does not perceive that she has focal or unilateral weakness or numbness, no headaches Related Data Home Medications Medication Instructions Recorded Confirmed multivitamin 1 tablet PO DAILY 04/07/19 10/10/20 leflunomide 20 mg PO DAILY 03/27/20 10/10/20 abatacept [Orencia ClickJect] 125 mg SUBCUT WEEKLY 10/03/20 10/10/20 Allergies Allergy/AdvReac Type Severity Reaction Status Date / Time hydrocodone [From Vicodin] Allergy Intermediate Itching Verified 12/18/20 19:38 hydromorphone Allergy Intermediate pruritis Verified 12/18/20 19:38 tramadol Allergy Intermediate Itching Verified 12/18/20 19:38 Review of Systems Review of Systems: All systems reviewed & are unremarkable except as noted in HPI and below Constitutional: Constitutional: Reports no additional constitutional complaints, Denies chills, Denies fever(s), Denies headache(s) and Reports weakness Eyes: Eyes: Reports no additional eye complaints and Denies change in vision ENT: Denies headache(s) and Denies sore throat Cardiovascular: Cardiovascular: Denies chest pain and Denies dyspnea Respiratory: Respiratory: Denies cough and Denies dyspnea Gastrointestinal: Gastrointestinal: Denies abdominal pain, Denies diarrhea and Denies vomiting Genitourinary: Genitourinary: Denies urinary frequency and Denies dysuria Musculoskeletal: Musculoskeletal: Denies back pain, Denies deformity, Denies arthralgias, Denies joint swelling and Denies numbness Integumentary/Breasts: Skin/Breast: Denies rash and Denies wounds Neurologic: Denies dizziness, Denies headache(s), Denies focal weakness, Denies numbness and Reports weakness Psychiatric: Psychiatric: Reports no additional psychiatric complaints Endocrine: Endocrine: Reports no additional endocrine complaints Hematologic/Lymphatic: Hematologic/Lymphatic: Reports no additional hematologic/lymphatic complaints Allergic/Immunologic: Allergic/Immunologic: Reports no additional allergic/immunologic complaints PMFSH Past Medical History Medical History (Updated 12/18/20 @ 21:15 by Marlon Dixon MD) Abdominal pain Anemia Benign essential HTN BP (high blood pressure) Chronic constipation Chronic insomnia HLD (hyperlipidemia) Mixed hyperlipidemia Rheumatoid arthritis Tobacco dependence due to cigarettes Ulcer at site of surgical anastomosis following bypass of stomach Surgical History Surgical History Bariatric surgery status H/O prior ablation treatment Hx of hysterectomy Previous section S/P rotator cuff repair Social History Social History (Updated 05/22/20 @ 07:38 by Radha Hargrove) Social History: Single Years smoked: 26 Smoking status: Current every day smoker Tobacco type: cigarettes Second hand tobacco smoke exposure: Yes Alcohol intake: current Drinks per week: 1 Alcohol use details: occassionally Substance use: never Substance use type: does not use Gender identity (if verbalized by the patient): Female Spiritual care concerns: No Exam Const: General: cooperative, healthy robert
--- NOTE | 2020-12-18 21:04 | PC.NURSE ---
Pt states she wants to go home, requesting IV be taken out. IV removed with tip intact. This RN asked pt to stay in room until EDP could speak with her. EDP made aware and asked to speak with pt. This RN returned to room and pt had left.
[2020-12-18 21:40] LABS: Thyroid Stimulating Hormone Reflex 0.811 uIU/mL (0.465-4.68)
== END 2020-12-18 21:04 | disposition left against medical advice (07) ==
PROVIDERS: Emergency Provider Emergency Medicine; PCP Family Medicine
DX: R53.1 Weakness (principal); R20.2 Paresthesia of skin; F17.210 Nicotine dependence, cigarettes, uncomplicated; I10 Essential (primary) hypertension; E78.5 Hyperlipidemia, unspecified; M06.9 Rheumatoid arthritis, unspecified
CPT/HCPCS: 36415; 70450; 80048; 84443; 85025; 99284